=== PATIENT | female | born 1985 | race Caucasian/White ===

== ENCOUNTER 2017-03-02 13:50 | Observation (INO) | payer OTHER ==
[~2017-03-02] VITALS: Ht 163 cm; Wt 73.0 kg
[2017-03-02 15:46] VITALS: BP 117/70
== END 2017-03-02 16:25 | disposition home or self-care (01) ==
LOC: 4S 13:50
PROVIDERS: ADMIT Obstetrics & Gynecology; ATTEND Obstetrics & Gynecology
DX: O62.9 Abnormality of forces of labor, unspecified (principal); Z3A.37 37 weeks gestation of pregnancy
CPT/HCPCS: 59025; G0378

== ENCOUNTER 2017-03-17 15:21 | Inpatient (IN) | payer OTHER ==
[~2017-03-17] VITALS: Ht 165.1 cm; Wt 77.6 kg
[2017-03-17] MEDS ORDERED: INFLUENZA VIRUS VACCINE QVS 2017-18 (3YR+)/PF 60 MCG/0.5 ML SYRINGE IM ONE (16:45)
[2017-03-17] MEDS ORDERED: OXYTOCIN 30 UNITS/LACT RINGERS 500 ML IV ONE (16:46)
[2017-03-17] MEDS ORDERED: RINGERS SOLUTION,LACTATED 1,000 ML IV ONE (16:46)
[2017-03-17 16:53] VITALS: BP 110/66
[2017-03-17] MEDS ORDERED: METOCLOPRAMIDE HCL 5 MG/ML 2 ML VIAL IVP PRN (17:00)
[2017-03-17] MEDS ORDERED: LIDOCAINE HCL/PF 1% 30 ML VIAL INJ PRN (17:00)
[2017-03-17] MEDS ORDERED: CITRIC ACID/SODIUM CITRATE 30 ML SOLUTION UDCUP PO PRN (17:00)
[2017-03-17] MEDS: RINGERS SOLUTION,LACTATED 1,000 ML IV SCH ×2 (17:05→23:57)
[2017-03-17 17:23] LABS: BASOPHILS % (AUTO) 0.4 % (0.0-2.0); EOSINOPHILS % (AUTO) 0.3 % (1.0-6.0); HEMATOCRIT 29.1 % (36-46); HEMOGLOBIN 9.8 g/dL (12.0-16.0); LYMPHOCYTES # (AUTO) 1.2 K/uL (1.0-4.8); LYMPHOCYTES % (AUTO) 12.5 % (22.0-44.0); MEAN CORPUSCULAR HEMOGLOBIN 27.6 pg (26.0-34.0); MEAN CORPUSCULAR HGB CONC 33.6 G/dL (31.0-37.0); MEAN CORPUSCULAR VOLUME 82 fL (80-100); MONOCYTES # (AUTO) 0.5 K/uL (0.1-1.0); NEUTROPHILS # (AUTO) 8.1 K/uL (1.8-7.7); NEUTROPHILS % (AUTO) 81.8 % (40.0-70.0); RED BLOOD CELL COUNT(AUTO) 3.54 MIL/uL (4.00-5.20); RED CELL DISTRIBUTION WIDTH 14.7 % (11.5-14.5); WHITE BLOOD COUNT (AUTO) 9.9 K/uL (4.5-11.0)
[2017-03-17] MEDS ORDERED: DINOPROSTONE 10 MG VAGINAL SUPPOSITORY VG ONE (17:45)
[2017-03-17] MEDS: FentaNYL CITRATE-PF 100 MCG/2 ML VIAL IVP PRN ×4 (21:15→22:36)
[2017-03-18] MEDS: FentaNYL CITRATE-PF 100 MCG/2 ML VIAL IVP PRN ×2 (02:11→02:16)
[2017-03-18] MEDS ORDERED: FentaNYL/BUPIV 0.125%/NS/PF 200 ML ED ONE (03:45)
[2017-03-18] MEDS ORDERED: BUPIVACAINE HCL/PF 0.25% 30 ML VIAL ONE (03:46)
[2017-03-18] MEDS: RINGERS SOLUTION,LACTATED 1,000 ML IV SCH ×2 (03:50→12:46)
[2017-03-18] MEDS ORDERED: FentaNYL/BUPIV 0.125%/NS/PF 200 ML ED PRN (04:20)
[2017-03-18] MEDS ORDERED: ONDANSETRON HCL 4 MG/2 ML VIAL IVP PRN (04:30)
[2017-03-18] MEDS ORDERED: DiphenhydrAMINE HCL 50 MG/ML VIAL IVP PRN (04:30)
[2017-03-18] MEDS ORDERED: -PHARMACY NOTE- MISC ONE ×2 (05:45)
[2017-03-18] MEDS ORDERED: OXYTOCIN 30 UNITS/LACT RINGERS 500 ML IV ONE ×3 (07:13→08:02)
[2017-03-18] MEDS ORDERED: BENZOCAINE 20%/MENTHOL 56 GM SPRAY CANISTER TP PRN (08:15)
[2017-03-18] MEDS ORDERED: GLYCERIN/WITCH HAZEL LEAF 40 PADS JAR TP PRN (08:15)
[2017-03-18] MEDS ORDERED: LANOLIN 7 GM OINTMENT TP PRN (08:15)
[2017-03-18] MEDS ORDERED: OxyCODONE HCL/ACETAMINOPHEN 5-325 MG TABLET PO PRN (08:15)
[2017-03-18] MEDS ORDERED: LIDOCAINE HCL/PF 1% 30 ML VIAL INJ PRN (08:15)
[2017-03-18] MEDS: IBUPROFEN 800 MG TABLET PO PRN ×2 (09:30→16:33)
[2017-03-18] MEDS: MAGNESIUM HYDROXIDE SUSPENSION 30 ML UDCUP PO PRN ×2 (09:34→19:42)
[2017-03-18] MEDS: OxyCODONE HCL/ACETAMINOPHEN 5-325 MG TABLET PO PRN ×2 (13:42→19:42)
[2017-03-19] MEDS: IBUPROFEN 800 MG TABLET PO PRN ×2 (00:29→05:55)
[2017-03-19 06:22] LABS: BASOPHILS % (AUTO) 0.5 % (0.0-2.0); EOSINOPHILS % (AUTO) 0.6 % (1.0-6.0); HEMATOCRIT 27.7 % (36-46); HEMOGLOBIN 9.3 g/dL (12.0-16.0); LYMPHOCYTES # (AUTO) 2.3 K/uL (1.0-4.8); LYMPHOCYTES % (AUTO) 20.3 % (22.0-44.0); MEAN CORPUSCULAR HEMOGLOBIN 28.1 pg (26.0-34.0); MEAN CORPUSCULAR HGB CONC 33.6 G/dL (31.0-37.0); MEAN CORPUSCULAR VOLUME 84 fL (80-100); MONOCYTES # (AUTO) 0.7 K/uL (0.1-1.0); MONOCYTES % (AUTO) 6.5 % (2.0-9.0); NEUTROPHILS # (AUTO) 8.2 K/uL (1.8-7.7); NEUTROPHILS % (AUTO) 72.1 % (40.0-70.0); RED BLOOD CELL COUNT(AUTO) 3.31 MIL/uL (4.00-5.20); RED CELL DISTRIBUTION WIDTH 15.3 % (11.5-14.5); WHITE BLOOD COUNT (AUTO) 11.3 K/uL (4.5-11.0)
[2017-03-19] MEDS ORDERED: IBUP-2070 PO (08:37)
[2017-03-19] MEDS ORDERED: FERR-89 PO (08:37)
[2017-03-19] MEDS ORDERED: DSS100 PO (08:38)
== END 2017-03-19 09:45 | disposition home or self-care (01) | DRG 775 ==
LOC: OBSVTOIN 15:21 → 4S 15:21
PROVIDERS: ADMIT Obstetrics & Gynecology; ATTEND Obstetrics & Gynecology
PROC: 10E0XZZ Delivery of Products of Conception, External Approach (ICD-10-PCS; principal; 2017-03-18)
PROC: 0W8NXZZ Division of Female Perineum, External Approach (ICD-10-PCS; 2017-03-18)
PROC: 3E0R3BZ Introduction of Anesthetic Agent into Spinal Canal, Percutaneous Approach (ICD-10-PCS; 2017-03-18)
PROC: 00HU33Z Insertion of Infusion Device into Spinal Canal, Percutaneous Approach (ICD-10-PCS; 2017-03-18)
DX: O80 Encounter for full-term uncomplicated delivery (principal); Z37.0 Single live birth; Z3A.39 39 weeks gestation of pregnancy
CPT/HCPCS: 86850; 86900; 86901; J2590; J3010; J3490; J7120